=== PATIENT | male | born 1940 | race Caucasian/White ===

== ENCOUNTER 2023-03-25 16:40 | Inpatient (IN) | payer MEDICARE, OTHER ==
[~2023-03-25] VITALS: Ht 172.7 cm; Wt 83.9 kg
[2023-03-25 17:00] VITALS: BP 124/76; TEMP 97.8; O2SAT 97
[2023-03-25] MEDS ORDERED: MAG355OR18 PO (18:29)
[2023-03-25] MEDS ORDERED: HYDR-4209 PO (18:29)
[2023-03-25] MEDS ORDERED: ONDA4VIA52 IV (18:29)
[2023-03-25] MEDS ORDERED: morphine sulfate IV (18:29)
[2023-03-25] MEDS ORDERED: FOLI1TAB94 PO (18:29)
[2023-03-25] MEDS ORDERED: OXYB10TA4 PO (18:29)
[2023-03-25] MEDS ORDERED: Z GUARD TOP (18:29)
[2023-03-25] MEDS ORDERED: CARV6.25 PO (18:29)
[2023-03-25] MEDS ORDERED: ASPI81TA31 PO (18:29)
[2023-03-25] MEDS ORDERED: LACT-246 PO (18:29)
[2023-03-25] MEDS ORDERED: drisdol PO (18:29)
[2023-03-25] MEDS ORDERED: ACET-2154 PO (18:29)
[2023-03-25] MEDS ORDERED: oscal PO (18:29)
[2023-03-25] MEDS ORDERED: ALBU2.5V13 NEB (18:29)
[2023-03-25] MEDS ORDERED: ATOR40TA PO (18:29)
[2023-03-25] MEDS ORDERED: FINA5TAB11 PO (18:29)
[2023-03-25] MEDS ORDERED: ZOLP5TAB8 PO (18:29)
[2023-03-25] MEDS ORDERED: ALLO100T PO (18:29)
[2023-03-25] MEDS ORDERED: CLOP75TA15 PO (18:29)
[2023-03-25] MEDS ORDERED: HYDR20VI6 IV (18:29)
[2023-03-25] MEDS ORDERED: BUDE0.25 NEB (18:29)
[2023-03-25] MEDS ORDERED: LORA10CA PO (18:29)
[2023-03-25] MEDS ORDERED: PANT40TA2 PO (18:29)
[2023-03-25] MEDS ORDERED: FLUT16SP16 EA NOSTRIL (18:29)
[2023-03-25] MEDS ORDERED: MAGN400O6 PO (18:29)
[2023-03-25] MEDS ORDERED: COLC0.6T67 PO (18:29)
[2023-03-25 20:10] VITALS: BP 114/74; TEMP 98.2; O2SAT 96
[2023-03-25] MEDS: OXYCODONE HCL 5 MG TABLET PO PRN (22:44)
[2023-03-25] MEDS: ACETAMINOPHEN 325 MG TABLET PO SCH (22:44)
[2023-03-26] MEDS: ACETAMINOPHEN 325 MG TABLET PO SCH ×3 (05:27→22:00)
[2023-03-26 05:34] VITALS: BP 140/67; TEMP 97.7; O2SAT 97
[2023-03-26 08:08] VITALS: BP 133/62; TEMP 97.6; O2SAT 97
[2023-03-26] MEDS: OXYCODONE HCL 5 MG TABLET PO PRN ×2 (11:31→18:52)
[2023-03-26] MEDS ORDERED: MORP4VIA IV (12:23)
[2023-03-26] MEDS ORDERED: ZINC113P3 TP (12:23)
[2023-03-26] MEDS ORDERED: CALC1TAB30 PO (12:23)
[2023-03-26 13:59] VITALS: BP 112/68; TEMP 98.2; O2SAT 96
[2023-03-26 15:08] VITALS: BP 129/63; TEMP 98.5; O2SAT 95
[2023-03-26 20:31] VITALS: BP 142/61; TEMP 99.4; O2SAT 96
[2023-03-27] VITALS (11 sets, daily range): BP systolic 107–166; BP diastolic 55–84; TEMP 98.3–99.3; O2SAT 94–98
[2023-03-27] MEDS: ALBUTEROL SULFATE 2.5 MG/ 0.5 ML NEBU NEB SCH ×4 (01:25→19:42)
[2023-03-27] MEDS: ACETAMINOPHEN 325 MG TABLET PO SCH ×3 (06:08→22:28)
[2023-03-27 06:28] LABS: BASOPHILS % (AUTO) 0.4 % (0.0-2.0); EOSINOPHILS # (AUTO) 0.4 K/uL (0.0-0.7); EOSINOPHILS % (AUTO) 3.9 % (0.0-7.0); HEMATOCRIT 30.9 % (36.7-47.1); HEMOGLOBIN 10.5 g/dL (12.5-16.3); LYMPHOCYTES # (AUTO) 1.1 K/uL (0.8-4.8); LYMPHOCYTES % (AUTO) 10.4 % (20.5-51.5); MEAN CORPUSCULAR HEMOGLOBIN 29.8 uug (23.8-33.4); MEAN CORPUSCULAR HGB CONC 34 g/dL (32.5-36.3); MEAN CORPUSCULAR VOLUME 88.1 fL (73.0-96.2); MONOCYTES # (AUTO) 1.1 K/uL (0.1-1.30); MONOCYTES % (AUTO) 10.2 % (0.0-11.0); NEUTROPHILS # (AUTO) 7.8 K/uL (1.8-8.9); NEUTROPHILS % (AUTO) 75.1 % (38.5-71.5); PLATELET COUNT (AUTO) 270 K/uL (152-348); RED BLOOD CELL COUNT(AUTO) 3.51 MIL/uL (4.06-5.63); RED CELL DISTRIBUTION WIDTH 15.9 % (12.1-16.2); WHITE BLOOD COUNT (AUTO) 10.5 K/uL (3.6-10.2)
[2023-03-27 06:58] LABS: DIFFERENTIAL COMMENT 1
[2023-03-27 07:02] LABS: CALCIUM 8.9 mg/dL (8.5-10.1); CREATININE 1.2 mg/dL (0.6-1.3); MAGNESIUM 1.9 mg/dL (1.8-2.4); PHOSPHOROUS 3.2 mg/dL (2.5-4.9); POTASSIUM 4.2 mmol/L (3.5-5.1)
[2023-03-27] MEDS: BUDESONIDE 0.25 MG/2 ML NEBU NEB SCH ×2 (07:30→19:42)
[2023-03-27] MEDS: ASPIRIN 81 MG TAB.CHEW PO SCH (08:39)
[2023-03-27] MEDS: CARVEDILOL 6.25 MG TABLET PO SCH ×2 (08:40→17:28)
[2023-03-27] MEDS: CALCIUM CARB/VITAMIN D 500MG-200UNITS TABLET PO SCH ×2 (08:40→17:27)
[2023-03-27] MEDS: LORATADINE 10 MG TABLET PO SCH (08:40)
[2023-03-27] MEDS: OXYBUTYNIN XL 5 MG TABSR PO SCH (08:40)
[2023-03-27] MEDS: COLCHICINE 0.6 MG TABLET PO SCH (08:40)
[2023-03-27] MEDS: ALLOPURINOL 100 MG TABLET PO SCH (08:40)
[2023-03-27] MEDS: FINASTERIDE 5 MG TABLET PO SCH (08:41)
[2023-03-27] MEDS: FOLIC ACID 1 MG TABLET PO SCH (08:41)
[2023-03-27] MEDS ORDERED: CLOPIDOGREL 75 MG TABLET PO SCH (09:00)
[2023-03-27] MEDS: FLUTICASONE PROP NASAL SPRAY 16 GM BOTTLE NS SCH (10:31)
[2023-03-27] MEDS: OXYCODONE HCL 5 MG TABLET PO PRN (11:14)
[2023-03-27 12:16] LABS: *BILIRUBIN,URIN NEGATIVE (NEGATIVE); *CLARITY,URINE CLEAR (CLEAR); *COLOR,URINE YELLOW (YELLOW); *KETONES,URINE NEGATIVE (NEGATIVE); *PROTEIN,URINE TRACE (NEGATIVE); *UROBILINOGEN,URINE 0.2 E.U./dl (NORMAL); LEUKOCYTE ESTERASE ,URINE TRACE (NEGATIVE); NITRITE, URINE NEGATIVE (NEGATIVE); PH,URINE 5.5 (5.0-8.0); UGLUCOSE NEGATIVE (NEGATIVE)
[2023-03-27 12:17] LABS: *BLOOD, URINE TRACE (NEGATIVE)
[2023-03-27 12:49] LABS: BACTERIA,URINE NONE SEEN /HPF (NONE SEEN); RBC,URINE 0-3 /HPF (0-3); SQUAMOUS EPITHELIAL CELL,UR FEW /HPF (NONE SEEN); WBC,URINE 0-3 /HPF (0-3)
[2023-03-27] MEDS: SODIUM CHLORIDE 1,000 MG TABLET PO SCH ×2 (13:54→17:27)
[2023-03-27 16:02] LABS: CALCIUM 8.2 mg/dL (8.5-10.1); CARBON DIOXIDE 26 mmol/L (21-32); CHLORIDE 98 mmol/L (98-107); CREATININE 1.3 mg/dL (0.6-1.3); GLUCOSE 133 mg/dL (74-106); POTASSIUM 4.4 mmol/L (3.5-5.1); SODIUM SERUM 132 mmol/L (136-145); UREA NITROGEN, BLOOD 31 mg/dL (7-18)
[2023-03-27] MEDS: ATORVASTATIN 40 MG TABLET PO SCH (17:28)
[2023-03-27] MEDS: TAMSULOSIN HCL 0.4 MG CAP.SR.24H PO SCH (20:11)
[2023-03-28] VITALS (9 sets, daily range): BP systolic 112–136; BP diastolic 60–75; TEMP 98.2–98.8; O2SAT 95–99
[2023-03-28] MEDS: ACETAMINOPHEN 325 MG TABLET PO SCH ×3 (05:39→22:00)
[2023-03-28] MEDS: ALBUTEROL SULFATE 2.5 MG/ 0.5 ML NEBU NEB SCH ×2 (07:23→21:41)
[2023-03-28] MEDS: BUDESONIDE 0.25 MG/2 ML NEBU NEB SCH ×2 (07:24→21:41)
[2023-03-28] MEDS: COLCHICINE 0.6 MG TABLET PO SCH (08:13)
[2023-03-28] MEDS: FOLIC ACID 1 MG TABLET PO SCH (08:13)
[2023-03-28] MEDS: ALLOPURINOL 100 MG TABLET PO SCH (08:13)
[2023-03-28] MEDS: FLUTICASONE PROP NASAL SPRAY 16 GM BOTTLE NS SCH (08:13)
[2023-03-28] MEDS: SODIUM CHLORIDE 1,000 MG TABLET PO SCH ×2 (08:13→16:11)
[2023-03-28] MEDS: LORATADINE 10 MG TABLET PO SCH (08:13)
[2023-03-28] MEDS: CARVEDILOL 6.25 MG TABLET PO SCH ×2 (08:13→16:11)
[2023-03-28] MEDS: CALCIUM CARB/VITAMIN D 500MG-200UNITS TABLET PO SCH ×2 (08:13→16:11)
[2023-03-28] MEDS: ASPIRIN 81 MG TAB.CHEW PO SCH (08:13)
[2023-03-28] MEDS: OXYBUTYNIN XL 5 MG TABSR PO SCH (08:13)
[2023-03-28] MEDS: FINASTERIDE 5 MG TABLET PO SCH (08:14)
[2023-03-28] MEDS: OXYCODONE HCL 5 MG TABLET PO PRN ×2 (08:39→20:47)
[2023-03-28] MEDS: ATORVASTATIN 40 MG TABLET PO SCH (17:16)
[2023-03-28] MEDS: RIVAROXABAN 10 MG TABLET PO SCH (17:26)
[2023-03-28] MEDS: TAMSULOSIN HCL 0.4 MG CAP.SR.24H PO SCH (20:47)
[2023-03-29] VITALS (9 sets, daily range): BP systolic 112–136; BP diastolic 50–71; TEMP 98.1–98.5; O2SAT 94–100
[2023-03-29] MEDS: ACETAMINOPHEN 325 MG TABLET PO SCH ×3 (05:48→21:53)
[2023-03-29] MEDS: CARVEDILOL 6.25 MG TABLET PO SCH ×2 (08:02→16:21)
[2023-03-29] MEDS: LORATADINE 10 MG TABLET PO SCH (08:02)
[2023-03-29] MEDS: ASPIRIN 81 MG TAB.CHEW PO SCH (08:02)
[2023-03-29] MEDS: CALCIUM CARB/VITAMIN D 500MG-200UNITS TABLET PO SCH ×2 (08:02→16:21)
[2023-03-29] MEDS: OXYBUTYNIN XL 5 MG TABSR PO SCH (08:02)
[2023-03-29] MEDS: FOLIC ACID 1 MG TABLET PO SCH (08:02)
[2023-03-29] MEDS: ALLOPURINOL 100 MG TABLET PO SCH (08:02)
[2023-03-29] MEDS: SODIUM CHLORIDE 1,000 MG TABLET PO SCH ×2 (08:02→16:21)
[2023-03-29] MEDS: FLUTICASONE PROP NASAL SPRAY 16 GM BOTTLE NS SCH (08:02)
[2023-03-29] MEDS: FINASTERIDE 5 MG TABLET PO SCH (08:02)
[2023-03-29] MEDS: BUDESONIDE 0.25 MG/2 ML NEBU NEB SCH ×2 (08:43→21:46)
[2023-03-29] MEDS: ALBUTEROL SULFATE 2.5 MG/ 0.5 ML NEBU NEB SCH ×2 (08:43→21:46)
[2023-03-29] MEDS: OXYCODONE HCL 5 MG TABLET PO PRN ×2 (08:51→20:45)
[2023-03-29] MEDS: RIVAROXABAN 10 MG TABLET PO SCH (16:26)
[2023-03-29] MEDS: ATORVASTATIN 40 MG TABLET PO SCH (17:06)
[2023-03-29] MEDS: TAMSULOSIN HCL 0.4 MG CAP.SR.24H PO SCH (20:43)
[2023-03-29] MEDS: TEMAZEPAM 15 MG CAPSULE PO PRN (20:46)
[2023-03-30] VITALS (7 sets, daily range): BP systolic 108–138; BP diastolic 55–81; TEMP 97.6–98.3; O2SAT 93–100
[2023-03-30] MEDS: ACETAMINOPHEN 325 MG TABLET PO SCH ×3 (06:09→21:13)
[2023-03-30] MEDS: BUDESONIDE 0.25 MG/2 ML NEBU NEB SCH ×2 (07:30→19:47)
[2023-03-30] MEDS: ALBUTEROL SULFATE 2.5 MG/ 0.5 ML NEBU NEB SCH ×2 (07:30→19:46)
[2023-03-30] MEDS: FINASTERIDE 5 MG TABLET PO SCH (08:04)
[2023-03-30] MEDS: SODIUM CHLORIDE 1,000 MG TABLET PO SCH ×2 (08:04→16:23)
[2023-03-30] MEDS: FLUTICASONE PROP NASAL SPRAY 16 GM BOTTLE NS SCH (08:04)
[2023-03-30] MEDS: OXYBUTYNIN XL 5 MG TABSR PO SCH (08:04)
[2023-03-30] MEDS: ASPIRIN 81 MG TAB.CHEW PO SCH (08:04)
[2023-03-30] MEDS: FOLIC ACID 1 MG TABLET PO SCH (08:05)
[2023-03-30] MEDS: CARVEDILOL 6.25 MG TABLET PO SCH ×2 (08:05→16:23)
[2023-03-30] MEDS: LORATADINE 10 MG TABLET PO SCH (08:05)
[2023-03-30] MEDS: CALCIUM CARB/VITAMIN D 500MG-200UNITS TABLET PO SCH ×2 (08:05→16:23)
[2023-03-30] MEDS: ALLOPURINOL 100 MG TABLET PO SCH (08:05)
[2023-03-30] MEDS: OXYCODONE HCL 5 MG TABLET PO PRN ×2 (08:45→21:14)
[2023-03-30] MEDS: RIVAROXABAN 10 MG TABLET PO SCH (16:24)
[2023-03-30] MEDS: ATORVASTATIN 40 MG TABLET PO SCH (17:05)
[2023-03-30] MEDS: TAMSULOSIN HCL 0.4 MG CAP.SR.24H PO SCH (21:13)
[2023-03-30] MEDS: TEMAZEPAM 15 MG CAPSULE PO PRN (22:02)
[2023-03-31] VITALS (7 sets, daily range): BP systolic 114–128; BP diastolic 55–56; TEMP 97.3–97.4; O2SAT 95–100
[2023-03-31] MEDS: OXYCODONE HCL 5 MG TABLET PO PRN ×2 (05:59→21:18)
[2023-03-31] MEDS: ACETAMINOPHEN 325 MG TABLET PO SCH ×4 (05:59→22:36)
[2023-03-31 06:28] LABS: BASOPHILS % (AUTO) 0.3 % (0.0-2.0); EOSINOPHILS # (AUTO) 0.3 K/uL (0.0-0.7); EOSINOPHILS % (AUTO) 2.4 % (0.0-7.0); HEMATOCRIT 27.1 % (36.7-47.1); HEMOGLOBIN 9.2 g/dL (12.5-16.3); LYMPHOCYTES # (AUTO) 1.8 K/uL (0.8-4.8); LYMPHOCYTES % (AUTO) 13.5 % (20.5-51.5); MEAN CORPUSCULAR HGB CONC 34 g/dL (32.5-36.3); MEAN CORPUSCULAR VOLUME 88.6 fL (73.0-96.2); MONOCYTES # (AUTO) 1.1 K/uL (0.1-1.30); MONOCYTES % (AUTO) 7.9 % (0.0-11.0); NEUTROPHILS # (AUTO) 10.4 K/uL (1.8-8.9); NEUTROPHILS % (AUTO) 75.9 % (38.5-71.5); PLATELET COUNT (AUTO) 421 K/uL (152-348); RED BLOOD CELL COUNT(AUTO) 3.06 MIL/uL (4.06-5.63); RED CELL DISTRIBUTION WIDTH 15.8 % (12.1-16.2); WHITE BLOOD COUNT (AUTO) 13.7 K/uL (3.6-10.2)
[2023-03-31 06:48] LABS: DIFFERENTIAL COMMENT 1
[2023-03-31 06:51] LABS: THYROID STIMULATING HORMONE 2.425 mIU/mL (0.358-3.740)
[2023-03-31 07:06] LABS: ALANINE AMINOTRANSFERASE 122 U/L (16-63); ALBUMIN 2.1 g/dL (3.4-5.0); ALKALINE PHOSPHATASE 133 U/L (50-136); ASPARTATE AMINOTRANSFERASE 76 U/L (15-37); BILIRUBIN,TOTAL 1.1 mg/dL (0.2-1.0); CARBON DIOXIDE 25 mmol/L (21-32); CHLORIDE 105 mmol/L (98-107); CHOLESTEROL 100 mg/dL (<200); CREATININE 1.4 mg/dL (0.6-1.3); GLUCOSE 110 mg/dL (74-106); HDL CHOLESTEROL 34 mg/dL (40-60); MAGNESIUM 2.1 mg/dL (1.8-2.4); PHOSPHOROUS 3.8 mg/dL (2.5-4.9); POTASSIUM 4.3 mmol/L (3.5-5.1); SODIUM SERUM 139 mmol/L (136-145); TOTAL PROTEIN, SERUM 5.5 g/dL (6.4-8.2); TRIGLYCERIDES 85 MG/DL (30-150); UREA NITROGEN, BLOOD 30 mg/dL (7-18)
[2023-03-31] MEDS: ALBUTEROL SULFATE 2.5 MG/ 0.5 ML NEBU NEB SCH ×2 (07:16→19:24)
[2023-03-31] MEDS: BUDESONIDE 0.25 MG/2 ML NEBU NEB SCH ×2 (07:16→19:24)
[2023-03-31 07:25] LABS: CALCIUM 8.6 mg/dL (8.5-10.1)
[2023-03-31 07:28] LABS: IRON, SERUM 17 ug/dL (50-175)
[2023-03-31] MEDS: ASPIRIN 81 MG TAB.CHEW PO SCH (08:31)
[2023-03-31] MEDS: CALCIUM CARB/VITAMIN D 500MG-200UNITS TABLET PO SCH ×2 (08:31→16:46)
[2023-03-31] MEDS: LORATADINE 10 MG TABLET PO SCH (08:32)
[2023-03-31] MEDS: ALLOPURINOL 100 MG TABLET PO SCH (08:32)
[2023-03-31] MEDS: FINASTERIDE 5 MG TABLET PO SCH (08:32)
[2023-03-31] MEDS: OXYBUTYNIN XL 5 MG TABSR PO SCH (08:32)
[2023-03-31] MEDS: SODIUM CHLORIDE 1,000 MG TABLET PO SCH ×2 (08:33→16:46)
[2023-03-31] MEDS: FOLIC ACID 1 MG TABLET PO SCH (08:33)
[2023-03-31] MEDS: CARVEDILOL 6.25 MG TABLET PO SCH ×3 (08:33→09:32)
[2023-03-31] MEDS: FLUTICASONE PROP NASAL SPRAY 16 GM BOTTLE NS SCH (09:39)
[2023-03-31] MEDS: TAMSULOSIN HCL 0.4 MG CAP.SR.24H PO SCH ×2 (13:24→21:17)
[2023-03-31] MEDS: RIVAROXABAN 10 MG TABLET PO SCH (16:48)
[2023-03-31] MEDS: ATORVASTATIN 40 MG TABLET PO SCH (18:42)
[2023-03-31] MEDS: TEMAZEPAM 15 MG CAPSULE PO PRN (23:20)
[2023-04-01] VITALS (7 sets, daily range): BP systolic 100–144; BP diastolic 49–71; TEMP 97.5–99.5; O2SAT 93–100
[2023-04-01] MEDS: ACETAMINOPHEN 325 MG TABLET PO SCH ×3 (06:38→21:31)
[2023-04-01] MEDS: BUDESONIDE 0.25 MG/2 ML NEBU NEB SCH ×2 (07:21→19:40)
[2023-04-01] MEDS: ALBUTEROL SULFATE 2.5 MG/ 0.5 ML NEBU NEB SCH ×2 (07:21→19:39)
[2023-04-01] MEDS: FLUTICASONE PROP NASAL SPRAY 16 GM BOTTLE NS SCH (08:12)
[2023-04-01] MEDS: FOLIC ACID 1 MG TABLET PO SCH (08:12)
[2023-04-01] MEDS: ASPIRIN 81 MG TAB.CHEW PO SCH (08:12)
[2023-04-01] MEDS: ALLOPURINOL 100 MG TABLET PO SCH (08:12)
[2023-04-01] MEDS: FINASTERIDE 5 MG TABLET PO SCH (08:12)
[2023-04-01] MEDS: CALCIUM CARB/VITAMIN D 500MG-200UNITS TABLET PO SCH ×2 (08:12→16:16)
[2023-04-01] MEDS: SODIUM CHLORIDE 1,000 MG TABLET PO SCH ×2 (08:12→16:16)
[2023-04-01] MEDS: LORATADINE 10 MG TABLET PO SCH (08:12)
[2023-04-01] MEDS: TAMSULOSIN HCL 0.4 MG CAP.SR.24H PO SCH ×2 (08:12→21:31)
[2023-04-01] MEDS: OXYBUTYNIN XL 5 MG TABSR PO SCH (08:13)
[2023-04-01] MEDS ORDERED: SOD FERRIC GLUC COMPLX/SUCROSE 125 MG in IV NORMAL SALINE 100 ML IV SCH (14:00)
[2023-04-01] MEDS: CARVEDILOL 6.25 MG TABLET PO SCH (16:16)
[2023-04-01] MEDS: RIVAROXABAN 10 MG TABLET PO SCH (16:17)
[2023-04-01] MEDS: ATORVASTATIN 40 MG TABLET PO SCH (17:09)
[2023-04-01] MEDS: OXYCODONE HCL 5 MG TABLET PO PRN (21:30)
[2023-04-01] MEDS: ATORVASTATIN 10 MG TABLET PO SCH (21:31)
[2023-04-02 04:34] VITALS: BP 105/51; TEMP 97.9; O2SAT 97
[2023-04-02] MEDS: CEphaleXIN 500 MG CAPSULE PO SCH ×3 (05:57→21:37)
[2023-04-02] MEDS: ACETAMINOPHEN 325 MG TABLET PO SCH ×3 (05:57→21:36)
[2023-04-02 07:02] LABS: BASOPHILS % (AUTO) 0.2 % (0.0-2.0); EOSINOPHILS # (AUTO) 0.2 K/uL (0.0-0.7); EOSINOPHILS % (AUTO) 1.7 % (0.0-7.0); HEMATOCRIT 27.8 % (36.7-47.1); HEMOGLOBIN 9.2 g/dL (12.5-16.3); LYMPHOCYTES # (AUTO) 1.9 K/uL (0.8-4.8); LYMPHOCYTES % (AUTO) 13.1 % (20.5-51.5); MEAN CORPUSCULAR HEMOGLOBIN 29.3 uug (23.8-33.4); MEAN CORPUSCULAR HGB CONC 33 g/dL (32.5-36.3); MEAN CORPUSCULAR VOLUME 88.7 fL (73.0-96.2); NEUTROPHILS # (AUTO) 11.2 K/uL (1.8-8.9); PLATELET COUNT (AUTO) 449 K/uL (152-348); RED BLOOD CELL COUNT(AUTO) 3.13 MIL/uL (4.06-5.63); RED CELL DISTRIBUTION WIDTH 15.5 % (12.1-16.2); WHITE BLOOD COUNT (AUTO) 14.4 K/uL (3.6-10.2)
[2023-04-02 07:19] LABS: DIFFERENTIAL COMMENT 1
[2023-04-02 07:20] VITALS: O2SAT 96
[2023-04-02 07:24] LABS: ALANINE AMINOTRANSFERASE 74 U/L (16-63); ALKALINE PHOSPHATASE 120 U/L (50-136); ASPARTATE AMINOTRANSFERASE 34 U/L (15-37); CALCIUM 8.2 mg/dL (8.5-10.1); CARBON DIOXIDE 27 mmol/L (21-32); CHLORIDE 104 mmol/L (98-107); CREATININE 1.2 mg/dL (0.6-1.3); GLUCOSE 112 mg/dL (74-106); PHOSPHOROUS 3.3 mg/dL (2.5-4.9); POTASSIUM 4.1 mmol/L (3.5-5.1); SODIUM SERUM 138 mmol/L (136-145); TOTAL PROTEIN, SERUM 5.4 g/dL (6.4-8.2); UREA NITROGEN, BLOOD 21 mg/dL (7-18)
[2023-04-02 07:30] VITALS: BP 128/74; TEMP 98.6; O2SAT 94; O2SAT 99
[2023-04-02 07:31] LABS: *BILIRUBIN,URIN NEGATIVE (NEGATIVE); *BLOOD, URINE 3+ (NEGATIVE); *CLARITY,URINE CLOUDY (CLEAR); *COLOR,URINE YELLOW (YELLOW); *KETONES,URINE NEGATIVE (NEGATIVE); *PROTEIN,URINE 2+ (NEGATIVE); *UROBILINOGEN,URINE 0.2 E.U./dl (NORMAL); LEUKOCYTE ESTERASE ,URINE 2+ (NEGATIVE); NITRITE, URINE POSITIVE (NEGATIVE); UGLUCOSE NEGATIVE (NEGATIVE)
[2023-04-02] MEDS: ALBUTEROL SULFATE 2.5 MG/ 0.5 ML NEBU NEB SCH ×2 (07:36→19:47)
[2023-04-02] MEDS: BUDESONIDE 0.25 MG/2 ML NEBU NEB SCH ×2 (07:37→19:48)
[2023-04-02] MEDS: FLUTICASONE PROP NASAL SPRAY 16 GM BOTTLE NS SCH (08:02)
[2023-04-02] MEDS: LORATADINE 10 MG TABLET PO SCH (08:03)
[2023-04-02] MEDS: ALLOPURINOL 100 MG TABLET PO SCH (08:03)
[2023-04-02] MEDS: TAMSULOSIN HCL 0.4 MG CAP.SR.24H PO SCH ×2 (08:03→21:50)
[2023-04-02] MEDS: SODIUM CHLORIDE 1,000 MG TABLET PO SCH ×2 (08:03→16:05)
[2023-04-02] MEDS: CALCIUM CARB/VITAMIN D 500MG-200UNITS TABLET PO SCH ×2 (08:03→16:05)
[2023-04-02] MEDS: OXYBUTYNIN XL 5 MG TABSR PO SCH (08:03)
[2023-04-02] MEDS: ASPIRIN 81 MG TAB.CHEW PO SCH (08:03)
[2023-04-02] MEDS: FOLIC ACID 1 MG TABLET PO SCH (08:03)
[2023-04-02] MEDS: FINASTERIDE 5 MG TABLET PO SCH (08:03)
[2023-04-02] MEDS: CARVEDILOL 6.25 MG TABLET PO SCH ×2 (08:24→16:05)
[2023-04-02 09:02] LABS: BACTERIA,URINE MANY /HPF (NONE SEEN); MUCUS,URINE FEW /LPF (0-FEW); RBC,URINE TNTC /HPF (0-3); SQUAMOUS EPITHELIAL CELL,UR FEW /HPF (NONE SEEN); WBC,URINE 80-100 /HPF (0-3)
[2023-04-02 15:39] VITALS: BP 116/65; TEMP 98; O2SAT 98
[2023-04-02] MEDS: RIVAROXABAN 10 MG TABLET PO SCH (16:05)
[2023-04-02 19:48] VITALS: O2SAT 97
[2023-04-02 20:03] VITALS: O2SAT 99
[2023-04-02] MEDS: TEMAZEPAM 15 MG CAPSULE PO PRN (21:37)
[2023-04-02] MEDS: ATORVASTATIN 10 MG TABLET PO SCH (21:38)
[2023-04-02] MEDS: OXYCODONE HCL 5 MG TABLET PO PRN (21:38)
[2023-04-03] VITALS (10 sets, daily range): BP systolic 104–153; BP diastolic 49–72; TEMP 98.3–98.6; O2SAT 95–99
[2023-04-03] MEDS: CEphaleXIN 500 MG CAPSULE PO SCH ×3 (05:34→18:10)
[2023-04-03] MEDS: ACETAMINOPHEN 325 MG TABLET PO SCH ×3 (05:34→22:00)
[2023-04-03] MEDS: FLUTICASONE PROP NASAL SPRAY 16 GM BOTTLE NS SCH (08:01)
[2023-04-03] MEDS: ASPIRIN 81 MG TAB.CHEW PO SCH (08:01)
[2023-04-03] MEDS: FOLIC ACID 1 MG TABLET PO SCH (08:02)
[2023-04-03] MEDS: ALLOPURINOL 100 MG TABLET PO SCH (08:02)
[2023-04-03] MEDS: CARVEDILOL 6.25 MG TABLET PO SCH ×2 (08:02→16:20)
[2023-04-03] MEDS: TAMSULOSIN HCL 0.4 MG CAP.SR.24H PO SCH ×2 (08:02→20:03)
[2023-04-03] MEDS: FINASTERIDE 5 MG TABLET PO SCH (08:02)
[2023-04-03] MEDS: SODIUM CHLORIDE 1,000 MG TABLET PO SCH ×2 (08:02→16:18)
[2023-04-03] MEDS: CALCIUM CARB/VITAMIN D 500MG-200UNITS TABLET PO SCH ×2 (08:02→16:18)
[2023-04-03] MEDS: LORATADINE 10 MG TABLET PO SCH (08:02)
[2023-04-03] MEDS: ALBUTEROL SULFATE 2.5 MG/ 0.5 ML NEBU NEB SCH ×2 (08:13→21:03)
[2023-04-03] MEDS: BUDESONIDE 0.25 MG/2 ML NEBU NEB SCH ×2 (08:13→21:03)
[2023-04-03] MEDS ORDERED: CEFTRIAXONE 2 G in IV DEXTROSE 5% 100 ML IV SCH (15:00)
[2023-04-03] MEDS: RIVAROXABAN 10 MG TABLET PO SCH (16:19)
[2023-04-03] MEDS: OXYCODONE HCL 5 MG TABLET PO PRN (19:52)
[2023-04-03] MEDS: ATORVASTATIN 10 MG TABLET PO SCH (20:03)
[2023-04-03] MEDS: TEMAZEPAM 15 MG CAPSULE PO PRN (21:00)
[2023-04-03] MEDS ORDERED: CEphaleXIN 500 MG CAPSULE PO SCH (22:00)
[2023-04-04] VITALS (8 sets, daily range): BP systolic 124–143; BP diastolic 62–72; TEMP 98.6–99; O2SAT 95–100
[2023-04-04] MEDS: CEphaleXIN 500 MG CAPSULE PO SCH ×5 (00:23→23:12)
[2023-04-04] MEDS: ACETAMINOPHEN 325 MG TABLET PO SCH ×3 (05:00→21:43)
[2023-04-04 07:18] LABS: BASOPHILS % (AUTO) 0.3 % (0.0-2.0); EOSINOPHILS # (AUTO) 0.2 K/uL (0.0-0.7); HEMATOCRIT 27.2 % (36.7-47.1); HEMOGLOBIN 9.3 g/dL (12.5-16.3); LYMPHOCYTES % (AUTO) 18.8 % (20.5-51.5); MEAN CORPUSCULAR HEMOGLOBIN 30.3 uug (23.8-33.4); MEAN CORPUSCULAR HGB CONC 34 g/dL (32.5-36.3); MEAN CORPUSCULAR VOLUME 88.9 fL (73.0-96.2); MONOCYTES # (AUTO) 1.1 K/uL (0.1-1.30); NEUTROPHILS # (AUTO) 7.3 K/uL (1.8-8.9); NEUTROPHILS % (AUTO) 68.9 % (38.5-71.5); PLATELET COUNT (AUTO) 461 K/uL (152-348); RED BLOOD CELL COUNT(AUTO) 3.05 MIL/uL (4.06-5.63); RED CELL DISTRIBUTION WIDTH 15.9 % (12.1-16.2); WHITE BLOOD COUNT (AUTO) 10.6 K/uL (3.6-10.2)
[2023-04-04 07:22] LABS: DIFFERENTIAL COMMENT 1
[2023-04-04 07:42] LABS: CALCIUM 8.6 mg/dL (8.5-10.1); CARBON DIOXIDE 24 mmol/L (21-32); CHLORIDE 103 mmol/L (98-107); CREATININE 1.1 mg/dL (0.6-1.3); GLUCOSE 102 mg/dL (74-106); MAGNESIUM 1.8 mg/dL (1.8-2.4); POTASSIUM 4.2 mmol/L (3.5-5.1); SODIUM SERUM 135 mmol/L (136-145); UREA NITROGEN, BLOOD 14 mg/dL (7-18)
[2023-04-04] MEDS: ALBUTEROL SULFATE 2.5 MG/ 0.5 ML NEBU NEB SCH ×2 (08:02→19:45)
[2023-04-04] MEDS: BUDESONIDE 0.25 MG/2 ML NEBU NEB SCH ×2 (08:02→19:46)
[2023-04-04] MEDS: ASPIRIN 81 MG TAB.CHEW PO SCH (08:32)
[2023-04-04] MEDS: LORATADINE 10 MG TABLET PO SCH (08:32)
[2023-04-04] MEDS: FLUTICASONE PROP NASAL SPRAY 16 GM BOTTLE NS SCH (08:32)
[2023-04-04] MEDS: CARVEDILOL 6.25 MG TABLET PO SCH ×2 (08:32→17:10)
[2023-04-04] MEDS: SODIUM CHLORIDE 1,000 MG TABLET PO SCH ×2 (08:33→17:10)
[2023-04-04] MEDS: FOLIC ACID 1 MG TABLET PO SCH (08:33)
[2023-04-04] MEDS: CALCIUM CARB/VITAMIN D 500MG-200UNITS TABLET PO SCH ×2 (08:33→17:11)
[2023-04-04] MEDS: TAMSULOSIN HCL 0.4 MG CAP.SR.24H PO SCH ×2 (08:33→21:43)
[2023-04-04] MEDS: FINASTERIDE 5 MG TABLET PO SCH (08:34)
[2023-04-04] MEDS: ALLOPURINOL 100 MG TABLET PO SCH (08:34)
[2023-04-04] MEDS ORDERED: CEphaleXIN 500 MG CAPSULE PO SCH (17:00)
[2023-04-04] MEDS: RIVAROXABAN 10 MG TABLET PO SCH (17:11)
[2023-04-04] MEDS: ATORVASTATIN 10 MG TABLET PO SCH (21:43)
[2023-04-05] VITALS (7 sets, daily range): BP systolic 113–149; BP diastolic 60–88; TEMP 98–98.7; O2SAT 95–100
[2023-04-05] MEDS: OXYCODONE HCL 5 MG TABLET PO PRN ×2 (01:47→21:03)
[2023-04-05] MEDS: CEphaleXIN 500 MG CAPSULE PO SCH ×3 (05:08→17:22)
[2023-04-05] MEDS: ACETAMINOPHEN 325 MG TABLET PO SCH ×3 (05:09→22:00)
[2023-04-05 07:14] LABS: BASOPHILS # (AUTO) 0.1 K/UL (0.0-0.2); BASOPHILS % (AUTO) 0.6 % (0.0-2.0); EOSINOPHILS # (AUTO) 0.2 K/uL (0.0-0.7); EOSINOPHILS % (AUTO) 2.2 % (0.0-7.0); HEMATOCRIT 26.7 % (36.7-47.1); HEMOGLOBIN 9.1 g/dL (12.5-16.3); LYMPHOCYTES # (AUTO) 2.1 K/uL (0.8-4.8); LYMPHOCYTES % (AUTO) 21.8 % (20.5-51.5); MEAN CORPUSCULAR HEMOGLOBIN 30.1 uug (23.8-33.4); MEAN CORPUSCULAR HGB CONC 34 g/dL (32.5-36.3); MEAN CORPUSCULAR VOLUME 88.3 fL (73.0-96.2); MONOCYTES % (AUTO) 10.7 % (0.0-11.0); NEUTROPHILS # (AUTO) 6.3 K/uL (1.8-8.9); NEUTROPHILS % (AUTO) 64.7 % (38.5-71.5); PLATELET COUNT (AUTO) 443 K/uL (152-348); RED BLOOD CELL COUNT(AUTO) 3.03 MIL/uL (4.06-5.63); RED CELL DISTRIBUTION WIDTH 15.5 % (12.1-16.2); WHITE BLOOD COUNT (AUTO) 9.7 K/uL (3.6-10.2)
[2023-04-05 07:26] LABS: DIFFERENTIAL COMMENT 1
[2023-04-05] MEDS: BUDESONIDE 0.25 MG/2 ML NEBU NEB SCH ×2 (08:00→19:20)
[2023-04-05] MEDS: ALBUTEROL SULFATE 2.5 MG/ 0.5 ML NEBU NEB SCH ×2 (08:00→19:20)
[2023-04-05] MEDS: FLUTICASONE PROP NASAL SPRAY 16 GM BOTTLE NS SCH (08:12)
[2023-04-05] MEDS: CALCIUM CARB/VITAMIN D 500MG-200UNITS TABLET PO SCH ×2 (08:12→16:11)
[2023-04-05] MEDS: TAMSULOSIN HCL 0.4 MG CAP.SR.24H PO SCH ×2 (08:12→20:02)
[2023-04-05] MEDS: ASPIRIN 81 MG TAB.CHEW PO SCH (08:12)
[2023-04-05] MEDS: ALLOPURINOL 100 MG TABLET PO SCH (08:13)
[2023-04-05] MEDS: FOLIC ACID 1 MG TABLET PO SCH (08:13)
[2023-04-05] MEDS: SODIUM CHLORIDE 1,000 MG TABLET PO SCH ×2 (08:13→16:11)
[2023-04-05] MEDS: FINASTERIDE 5 MG TABLET PO SCH (08:13)
[2023-04-05] MEDS: LORATADINE 10 MG TABLET PO SCH (08:13)
[2023-04-05] MEDS: CARVEDILOL 6.25 MG TABLET PO SCH ×2 (08:13→16:11)
[2023-04-05] MEDS: RIVAROXABAN 10 MG TABLET PO SCH (16:12)
[2023-04-05] MEDS: ATORVASTATIN 10 MG TABLET PO SCH (20:02)
[2023-04-05] MEDS: TEMAZEPAM 15 MG CAPSULE PO PRN (21:03)
[2023-04-06] VITALS (9 sets, daily range): BP systolic 107–159; BP diastolic 54–79; TEMP 98–98.3; O2SAT 95–100
[2023-04-06] MEDS: CEphaleXIN 500 MG CAPSULE PO SCH ×4 (00:06→17:16)
[2023-04-06] MEDS: ACETAMINOPHEN 325 MG TABLET PO SCH ×3 (05:15→22:04)
[2023-04-06] MEDS: ASPIRIN 81 MG TAB.CHEW PO SCH (08:31)
[2023-04-06] MEDS: CALCIUM CARB/VITAMIN D 500MG-200UNITS TABLET PO SCH ×2 (08:31→17:16)
[2023-04-06] MEDS: CARVEDILOL 6.25 MG TABLET PO SCH ×2 (08:31→17:16)
[2023-04-06] MEDS: FINASTERIDE 5 MG TABLET PO SCH (08:31)
[2023-04-06] MEDS: ALLOPURINOL 100 MG TABLET PO SCH (08:31)
[2023-04-06] MEDS: FOLIC ACID 1 MG TABLET PO SCH (08:32)
[2023-04-06] MEDS: SODIUM CHLORIDE 1,000 MG TABLET PO SCH ×2 (08:32→17:16)
[2023-04-06] MEDS: TAMSULOSIN HCL 0.4 MG CAP.SR.24H PO SCH ×2 (08:32→20:43)
[2023-04-06] MEDS: OXYCODONE HCL 5 MG TABLET PO PRN ×2 (08:32→20:53)
[2023-04-06] MEDS: FLUTICASONE PROP NASAL SPRAY 16 GM BOTTLE NS SCH (08:33)
[2023-04-06] MEDS: LORATADINE 10 MG TABLET PO SCH (08:34)
[2023-04-06] MEDS: BUDESONIDE 0.25 MG/2 ML NEBU NEB SCH ×2 (09:19→20:35)
[2023-04-06] MEDS: ALBUTEROL SULFATE 2.5 MG/ 0.5 ML NEBU NEB SCH ×2 (09:20→20:36)
[2023-04-06] MEDS: RIVAROXABAN 10 MG TABLET PO SCH (17:18)
[2023-04-06] MEDS: ATORVASTATIN 10 MG TABLET PO SCH (20:43)
[2023-04-06] MEDS: TEMAZEPAM 15 MG CAPSULE PO PRN (22:04)
[2023-04-07] VITALS (9 sets, daily range): BP systolic 114–141; BP diastolic 54–74; TEMP 98.3–98.6; O2SAT 96–99
[2023-04-07] MEDS: ACETAMINOPHEN 325 MG TABLET PO SCH ×3 (06:23→21:59)
[2023-04-07] MEDS: ASPIRIN 81 MG TAB.CHEW PO SCH (08:14)
[2023-04-07] MEDS: FOLIC ACID 1 MG TABLET PO SCH (08:15)
[2023-04-07] MEDS: SODIUM CHLORIDE 1,000 MG TABLET PO SCH ×2 (08:15→16:04)
[2023-04-07] MEDS: CALCIUM CARB/VITAMIN D 500MG-200UNITS TABLET PO SCH ×2 (08:15→16:04)
[2023-04-07] MEDS: FINASTERIDE 5 MG TABLET PO SCH (08:15)
[2023-04-07] MEDS: TAMSULOSIN HCL 0.4 MG CAP.SR.24H PO SCH ×2 (08:15→20:23)
[2023-04-07] MEDS: ALLOPURINOL 100 MG TABLET PO SCH (08:15)
[2023-04-07] MEDS: CARVEDILOL 6.25 MG TABLET PO SCH ×2 (08:16→16:06)
[2023-04-07] MEDS: ALBUTEROL SULFATE 2.5 MG/ 0.5 ML NEBU NEB SCH ×2 (08:17→21:21)
[2023-04-07] MEDS: LORATADINE 10 MG TABLET PO SCH (08:17)
[2023-04-07] MEDS: BUDESONIDE 0.25 MG/2 ML NEBU NEB SCH ×2 (08:17→21:21)
[2023-04-07] MEDS: FLUTICASONE PROP NASAL SPRAY 16 GM BOTTLE NS SCH (08:18)
[2023-04-07] MEDS: RIVAROXABAN 10 MG TABLET PO SCH (16:07)
[2023-04-07] MEDS: ATORVASTATIN 10 MG TABLET PO SCH (20:23)
[2023-04-07] MEDS: OXYCODONE HCL 5 MG TABLET PO PRN (20:49)
[2023-04-07] MEDS: TEMAZEPAM 15 MG CAPSULE PO PRN (22:00)
[2023-04-08] VITALS (9 sets, daily range): BP systolic 107–143; BP diastolic 60–79; TEMP 97.6–98.2; O2SAT 96–100
[2023-04-08] MEDS: ACETAMINOPHEN 325 MG TABLET PO SCH ×3 (06:00→22:33)
[2023-04-08] MEDS: SODIUM CHLORIDE 1,000 MG TABLET PO SCH ×2 (08:02→16:02)
[2023-04-08] MEDS: ASPIRIN 81 MG TAB.CHEW PO SCH (08:02)
[2023-04-08] MEDS: LORATADINE 10 MG TABLET PO SCH (08:02)
[2023-04-08] MEDS: ALLOPURINOL 100 MG TABLET PO SCH (08:02)
[2023-04-08] MEDS: FLUTICASONE PROP NASAL SPRAY 16 GM BOTTLE NS SCH (08:02)
[2023-04-08] MEDS: TAMSULOSIN HCL 0.4 MG CAP.SR.24H PO SCH ×2 (08:02→21:08)
[2023-04-08] MEDS: FOLIC ACID 1 MG TABLET PO SCH (08:02)
[2023-04-08] MEDS: CALCIUM CARB/VITAMIN D 500MG-200UNITS TABLET PO SCH ×2 (08:02→16:02)
[2023-04-08] MEDS: FINASTERIDE 5 MG TABLET PO SCH (08:02)
[2023-04-08] MEDS: CARVEDILOL 6.25 MG TABLET PO SCH ×2 (08:03→16:03)
[2023-04-08] MEDS: BUDESONIDE 0.25 MG/2 ML NEBU NEB SCH ×2 (08:20→20:49)
[2023-04-08] MEDS: ALBUTEROL SULFATE 2.5 MG/ 0.5 ML NEBU NEB SCH ×2 (08:20→20:50)
[2023-04-08] MEDS: RIVAROXABAN 10 MG TABLET PO SCH (16:05)
[2023-04-08] MEDS: ATORVASTATIN 10 MG TABLET PO SCH (21:08)
[2023-04-08] MEDS: OXYCODONE HCL 5 MG TABLET PO PRN (21:08)
[2023-04-08] MEDS: TEMAZEPAM 15 MG CAPSULE PO PRN (22:33)
[2023-04-09 05:35] VITALS: BP 132/59; TEMP 97.8; O2SAT 98
[2023-04-09] MEDS: ACETAMINOPHEN 325 MG TABLET PO SCH (06:26)
[2023-04-09 07:40] VITALS: BP 134/64; TEMP 98.1; O2SAT 94
[2023-04-09] MEDS: ASPIRIN 81 MG TAB.CHEW PO SCH (08:33)
[2023-04-09 08:34] VITALS: BP 134/64; O2SAT 96
[2023-04-09] MEDS: FOLIC ACID 1 MG TABLET PO SCH (08:34)
[2023-04-09] MEDS: CALCIUM CARB/VITAMIN D 500MG-200UNITS TABLET PO SCH (08:34)
[2023-04-09] MEDS: LORATADINE 10 MG TABLET PO SCH (08:34)
[2023-04-09] MEDS: ALBUTEROL SULFATE 2.5 MG/ 0.5 ML NEBU NEB SCH (08:34)
[2023-04-09] MEDS: BUDESONIDE 0.25 MG/2 ML NEBU NEB SCH (08:34)
[2023-04-09] MEDS: ALLOPURINOL 100 MG TABLET PO SCH (08:34)
[2023-04-09] MEDS: SODIUM CHLORIDE 1,000 MG TABLET PO SCH (08:34)
[2023-04-09] MEDS: CARVEDILOL 6.25 MG TABLET PO SCH (08:34)
[2023-04-09] MEDS: TAMSULOSIN HCL 0.4 MG CAP.SR.24H PO SCH (08:34)
[2023-04-09] MEDS: FINASTERIDE 5 MG TABLET PO SCH (08:35)
[2023-04-09] MEDS: FLUTICASONE PROP NASAL SPRAY 16 GM BOTTLE NS SCH (08:37)
[2023-04-09 08:45] VITALS: O2SAT 99
== END 2023-04-09 14:45 | disposition home health service (06) | DRG 559 ==
PROVIDERS: ADMIT Physical Medicine & Rehabilitation Pain Medicine; ATTEND Physical Medicine & Rehabilitation Pain Medicine
DX: S72.142D Displaced intertrochanteric fracture of left femur, subsequent encounter for closed fracture with routine healing (principal); N17.0 Acute kidney failure with tubular necrosis; D62 Acute posthemorrhagic anemia; N39.0 Urinary tract infection, site not specified; D68.59 Other primary thrombophilia; E87.1 Hypo-osmolality and hyponatremia; T81.49XA Infection following a procedure, other surgical site, initial encounter; L03.116 Cellulitis of left lower limb; W18.30XD Fall on same level, unspecified, subsequent encounter; Z85.038 Personal history of other malignant neoplasm of large intestine; B96.20 Unspecified Escherichia coli [E. coli] as the cause of diseases classified elsewhere; E78.5 Hyperlipidemia, unspecified; K21.9 Gastro-esophageal reflux disease without esophagitis; S12.600D Unspecified displaced fracture of seventh cervical vertebra, subsequent encounter for fracture with routine healing; I12.9 Hypertensive chronic kidney disease with stage 1 through stage 4 chronic kidney disease, or unspecified chronic kidney disease; N18.9 Chronic kidney disease, unspecified; Y83.8 Other surgical procedures as the cause of abnormal reaction of the patient, or of later complication, without mention of misadventure at the time of the procedure; Y92.230 Patient room in hospital as the place of occurrence of the external cause; M10.9 Gout, unspecified; M19.90 Unspecified osteoarthritis, unspecified site; N28.1 Cyst of kidney, acquired; N40.1 Benign prostatic hyperplasia with lower urinary tract symptoms; R33.0 Drug induced retention of urine; T41.45XA Adverse effect of unspecified anesthetic, initial encounter; Z68.28 Body mass index [BMI] 28.0-28.9, adult; R00.1 Bradycardia, unspecified; R73.9 Hyperglycemia, unspecified
CPT/HCPCS: 36415; 73501; 82378; 83550; 83735; 84100; 84153; 84443; 85025; 87040; 94640; 94664; 94760; 97535-GO-CO; C1758; J0696; J2916; J3535; J3590; J8499